=== PATIENT | male | born 1945 | race Caucasian/White ===

== ENCOUNTER 2016-12-12 19:35 | Inpatient (IN) | payer MEDICARE, OTHER ==
[2016-12-12 19:37] VITALS: BP 152/79; PULSE 87; RESP 16; TEMP 98; O2SAT 100
--- NOTE | 2016-12-12 22:01 | PD ---
HPI Chief Complaint: GI Complaint Time Seen by Provider: 21:50 Travel History International Travel<30 days: No Contact w/Intl Traveler<30days: No Traveled to known affect area: No History of Present Illness HPI The patient is a 71 year old male who presents to the [facility] emergency department with a history of nausea and vomiting that began on Monday of last week. He reports that the last time he moved his bowels was on Monday, with onset of the vomiting. He reports that on he went to [facility] emergency department and had laboratory studies done and a chest x-ray done. The patient reports he received 2 bags of normal saline IV fluids and Zofran as well as Phenergan for nausea control and then discharged home on Zofran. He continues to have nausea and vomiting in spite of using the Zofran. He reports that over the last 24 hours she's had at least 20 episodes of vomiting. He reports that the emesis consists of bile. 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 He reports that he has had a colonoscopy done since then in August 2016 that was reportedly unremarkable. On review of systems, the patient denies any fevers, cough, congestion, neck pain, chest pain , abdominal pain, urinary symptoms, or neurologic symptoms. The patient incidentally also reports that over the last 5 weeks he has had 3 episodes of dyspnea with exertion associated with dizziness and lightheaded sensation. The patient reports that he has intermittently also had increased sensations of indigestion, heartburn. [facility], [facility] Past Medical History Narrative Medical The patient's past medical history is significant for tumor and bleed in stomach dx approximately 12 years ago, last upper and lower endoscopy 08/2016, hypertension, hyperlipidemia, history of prior PA, history of right coronary artery stent placement, diabetes mellitus. PMD: in [place]. Past Surgical History Narrative Surgical The patient's past surgical history is significant for a cholecystectomy, benign tumor resection from his stomach, cardiac catheterization with stent placement. Social History Alcohol Use: No Tobacco Use: No Substance Use: No Allergies-Medications (Allergen,Severity, Reaction): Coded Allergies: No Known Allergies (Unverified , 12/12/16) Review of Systems Except as stated in HPI: all other systems reviewed are Neg General / Constitutional: No: Fever Eyes: No: Visual changes HENT: Positive: Lightheadedness, No: Headaches Cardiovascular: Positive: Dyspnea on exertion, No: Chest Pain or Discomfort Respiratory: No: Shortness of Breath Gastrointestinal: Positive: Nausea, Vomiting, Diarrhea, Changes in Bowel Habits , Indigestion, No: Abdominal Pain, Hematemesis, Hematochezia, Loss of Appetite Genitourinary: No: Dysuria Musculoskeletal: No: Pain Skin: No Rash Neurologic: No: Weakness Psychiatric: No: Depression Endocrine: No: Polydipsia Hematologic/Lymphatic: No: Easy Bruising Physical Exam Narrative General: The patient is a well-developed well-nourished male in no acute distress. Head and Neck exam: Head is normocephalic atraumatic. Eyes: EOMI, pupils are equal round and reactive to light. Nose: Midline septum with pink mucous membranes Mouth: Dentition unremarkable. Moist mucus membranes. Posterior oropharynx is not erythematous. No tonsillar hypertrophy. Uvula midline. Airway patent. Neck: No palpable lymphadenopathy. No nuchal rigidity. No thyromegaly. Cardiovascular: Regular rate and rhythm without murmurs, gallops, or rubs. Lungs: Clear to auscultation bilaterally. No wheezes, rhonchi, or rales. Abdomen: Soft, without tenderness to palpation in all 4 quadrants of the abdomen. No guarding, rebound, or rigidity. No tenderness on palpation of McBurney's point. Negative Mason's sign. Normal bowel sounds are audible. Extremities: No clubbing, cyanosis, or edema. 2+ pulses in all 4 extremities. No calf tenderness on palpation. Back: No costovertebral angle tenderness to palpation. Neurologic Exam: Grossly nonfocal. Skin Exam: No rash noted. Intact skin that is warm and dry. Data Data Last Documented VS Vital Signs Date Time Temp Pulse Resp B/P Pulse Ox O2 Delivery O2 Flow Rate FiO2 12/12/16 22:40 99 12/12/16 19:37 98.0 87 16 152/79 Room Air Orders Electrocardiogram (12/12/16 21:53) Complete Blood Count With Diff (12/12/16 21:53) Comprehensive Metabolic Panel (12/12/16 21:53) Troponin I (12/12/16 21:53) Prothrombin Time / Inr (Pt) (12/12/16 21:53) Act Partial Throm Time (Ptt) (12/12/16 21:53) Lipase (12/12/16 21:53) Urinalysis - C+S If Indicated (12/12/16 21:53) Magnesium (Mg) (12/12/16 21:53) Chest, Single Ap (12/12/16 21:53) Iv Access Insert/Monitor (12/12/16 21:53) Ecg Monitoring (12/12/16 21:53) Oximetry (12/12/16 21:53) Sodium Chlorid 0.9% 500 Ml Inj (Ns 500 M (12/12/16 22:15) Ondansetron Inj (Zofran Inj) (12/12/16 22:15) Ct Abd/Pel W Iv Contrast(Rout) (12/12/16 22:13) Pantoprazole Inj (Protonix Inj) (12/12/16 22:30) Iohexol 350 Inj (Omnipaque 350 Inj) (12/12/16 23:40) Place In Observation (12/13/16 ) Vital Signs (Adult) Q4H (12/13/16 00:10) Activity Oob With Assistance (12/13/16 00:10) Certified Nurses' Aide / Telemetry .CONTINUOUS (12/13/16 00:10) Diet Npo (12/13/16 Breakfast) Sodium Chlor 0.9% 1000 Ml Inj (Ns 1000 M (12/13/16 00:10) Admit Order (Ed Use Only) (12/13/16 00:11) Sodium Chloride 0.9% Flush (Ns Flush) (12/13/16 00:15) Sodium Chloride 0.9% Flush (Ns Flush) (12/13/16 09:00) Ondansetron Inj (Zofran Inj) (12/13/16 00:15) Basic Metabolic Panel (Bmp) (12/14/16 06:00) Complete Blood Count With Diff (12/14/16 06:00) Naloxone Inj (Narcan Inj) (12/13/16 00:15) Docusate Sodium-Senna (Dorota-Colace) (12/13/16 09:00) Magnesium Hydroxide Liq (Milk Of Magnesi (12/13/16 00:15) Sennosides (Senokot) (12/13/16 00:15) Bisacodyl Supp (Dulcolax Supp) (12/13/16 00:15) Lactulose Liq (Lactulose Liq) (12/13/16 00:15) Pantoprazole (Protonix) (12/13/16 09:00) Potassium Chlor 20 Meq Premix (Kcl 20 Me (12/13/16 00:15) Labs Laboratory Tests Test 12/12/16 12/12/16 22:00 22:10 White Blood Count 10.7 TH/MM3 Red Blood Count 5.86 MIL/MM3 Hemoglobin 16.2 GM/DL Hematocrit 47.7 % Mean Corpuscular Volume 81.4 FL Mean Corpuscular Hemoglobin 27.6 PG Mean Corpuscular Hemoglobin 33.9 % Concent Red Cell Distribution Width 14.4 % Platelet Count 233 TH/MM3 Mean Platelet Volume 8.3 FL Neutrophils (%) (Auto) 70.0 % Lymphocytes (%) (Auto) 20.2 % Monocytes (%) (Auto) 8.6 % Eosinophils (%) (Auto) 0.6 % Basophils (%) (Auto) 0.6 % Neutrophils # (Auto) 7.5 TH/MM3 Lymphocytes # (Auto) 2.1 TH/MM3 Monocytes # (Auto) 0.9 TH/MM3 Eosinophils # (Auto) 0.1 TH/MM3 Basophils # (Auto) 0.1 TH/MM3 CBC Comment DIFF FINAL Differential Comment Prothrombin Time 12.2 SEC Prothromb Time International 1.1 RATIO Ratio Activated Partial 26.1 SEC Thromboplast Time Sodium Level 138 MEQ/L Potassium Level 3.3 MEQ/L Chloride Level 104 MEQ/L Carbon Dioxide Level 19.5 MEQ/L Anion Gap 15 MEQ/L Blood Urea Nitrogen 17 MG/DL Creatinine 0.97 MG/DL Estimat Glomerular Filtration 76 ML/MIN Rate Random Glucose 131 MG/DL Calcium Level 9.8 MG/DL Magnesium Level 2.1 MG/DL Total Bilirubin 1.1 MG/DL Aspartate Amino Transf 35 U/L (AST/SGOT) Alanine Aminotransferase 43 U/L (ALT/SGPT) Alkaline Phosphatase 83 U/L Troponin I LESS THAN 0.02 NG/ML Total Protein 7.5 GM/DL Albumin 3.7 GM/DL Lipase 152 U/L Urine Color YELLOW Urine Turbidity HAZY Urine pH 5.5 Urine Specific [place] 1.035 Urine Protein 30 mg/dL Urine Glucose (UA) NEG mg/dL Urine Ketones 40 mg/dL Urine Occult Blood NEG Urine Nitrite NEG Urine Bilirubin NEG Urine Urobilinogen 4.0 MG/DL Urine Leukocyte Esterase NEG Urine RBC 1 /hpf Urine WBC 2 /hpf Urine Squamous Epithelial 1 /hpf Cells Urine Mucus MANY /lpf Microscopic Urinalysis Comment CULT NOT INDICATED MDM Medical Decision Making Medical Screen Exam Complete: Yes Emergency Medical Condition: Yes Medical Record Reviewed: Yes Interpretation(s) Last Impressions Abdomen/Pelvis CT 12/12/162212 Signed Impressions: Service Date/Time: Monday, December 12, 2016 23:36 - CONCLUSION: 1. Nonspecific bowel gas pattern which may represent an ileus or gastroenteritis. Early obstruction is felt to be less likely. 2. Moderate hepatic steatosis. 3. Status post cholecystectomy. 4. Small low-attenuation lesion in the spleen which is nonspecific but appears benign. 5. Several small sclerotic foci which are nonspecific but likely represent small bone islands. Johann Bennett MD Chest X-Ray 12/12/162152 Signed Impressions: Service Date/Time: Monday, December 12, 2016 21:49 - CONCLUSION: The lungs are clear. Jamaal Rodriguez MD Differential Diagnosis Gastroenteritis, versus gastroparesis, versus bowel obstruction, versus ileus Narrative Course During the course of the patients emergency department visit, the patients history, examination, and differential diagnosis were reviewed with the patient. The patient had IV access obtained and blood work sent for analysis. The patient was placed on a monitor worker with oximetry and blood pressure monitoring. An ECG was done on arrival. The patient's ECG reveals a sinus rhythm with occasional supraventricular premature complexes, nonspecific ST segment T-wave abnormalities are noted, the patient is noted to have downsloping ST segments in leads V1, V2, V3, V4, V5, and V6. No acute ST segment elevation. The patient denies having any chest pain. The patient was initially provided normal saline a 500 mL bolus 1. The patient was given Zofran 4 mg IV for nausea. The patient was given Protonix 40 mg IV for heartburn. The patients laboratory studies were reviewed and remarkable for a white count of 10.7, hemoglobin 16.2, platelets 233 with 8.6 monocytes. CMP is remarkable for a potassium of 3.3, CO2 19.5, glucose 131, total bilirubin 1.1, troponin less than 0.02, lipase 152, PT 12.2, PTT 26.1, urinalysis shows 40 ketones otherwise unremarkable. Radiology studies were reviewed and remarkable for a chest x-ray that shows no acute cardiopulmonary disease. CT scan of the abdomen and pelvis shows a nonspecific bowel gas pattern which may represent an ileus or gastroenteritis, early obstruction is felt to be less likely, moderate hepatic steatosis, status post cholecystectomy, small low attenuation lesion in the spleen which is nonspecific but appears benign, several small sclerotic foci which are nonspecific but likely represents small bone islands The patients results were discussed with the patient, including the plan of care. I explained that further testing and/ or monitoring is indicated based on the patients history, examination, and/ or laboratory findings. Therefore, I recommended admission for additional evaluation. The patient expressed understanding and was agreeable with this plan. The patient was admitted to the hospital in stable condition and [facility] Physician Communication Physician Communication The patient's case was discussed with Dr. Puga who did agree to admit the patient for further evaluation and treatment at this time. Diagnosis Primary Impression: Intractable vomiting with nausea Qualified Code: R11.2 - Intractable vomiting with nausea, unspecified vomiting type Admitting Information Admitting Physician Requests: Cheri Watson MD Dec 12, 2016 22:01
[2016-12-12] MEDS ORDERED: SODIUM CHLORID 0.9% 500 ML INJ 500 ML IV ONE (22:15)
[2016-12-12] MEDS ORDERED: ONDANSETRON HCL 4 MG/2 ML VIAL IV PUSH ONE (22:15)
[2016-12-12 22:16] LABS: AUTOMATED NEUTROPHIL # 7.5 TH/MM3 (1.8-7.7); BASOPHIL # 0.1 TH/MM3 (0-0.2); BASOPHIL % 0.6 % (0.0-2.0); EOSINOPHIL # 0.1 TH/MM3 (0-0.4); EOSINOPHIL % 0.6 % (0.0-4.0); HEMATOCRIT 47.7 % (39.0-51.0); HEMO FLAGS DIFF FINAL; LYMPH % 20.2 % (9.0-44.0); LYMPHOCYTE # 2.1 TH/MM3 (1.0-4.8); MEAN CELL VOLUME 81.4 FL (80.0-100.0); MEAN CORPUSCULAR HEMOGLOBIN 27.6 PG (27.0-34.0); MEAN CORPUSCULAR HGB CONC 33.9 % (32.0-36.0); MONO % 8.6 % (0.0-8.0); PLATELET COUNT 233 TH/MM3 (150-450); RED BLOOD COUNT 5.86 MIL/MM3 (4.50-5.90); RED CELL DISTRIBUTION WIDTH 14.4 % (11.6-17.2); WHITE BLOOD COUNT 10.7 TH/MM3 (4.0-11.0)
[2016-12-12 22:28] LABS: APTT (PATIENT) 26.1 SEC (24.3-30.1); INTERNATIONAL NORMALIZED RATIO 1.1 RATIO; PROTHROMBIN TIME - PATIENT 12.2 SEC (9.8-11.6)
[2016-12-12] MEDS ORDERED: PANTOPRAZOLE SODIUM 40 MG VIAL IV PUSH ONE (22:30)
[2016-12-12 22:33] LABS: ALT (GPT) 43 U/L (12-78)
[2016-12-12 22:36] LABS: ALKALINE PHOSPHATASE 83 U/L (45-117); TOTAL BILIRUBIN ADULT 1.1 MG/DL (0.2-1.0)
[2016-12-12 22:37] LABS: ANION GAP 15 MEQ/L (5-15); AST (GOT) 35 U/L (15-37); BICARBONATE 19.5 MEQ/L (21.0-32.0); BLOOD UREA NITROGEN 17 MG/DL (7-18); CHLORIDE 104 MEQ/L (98-107); GLOMERULAR FILTRATION RATE 76 ML/MIN (>89); MAGNESIUM 2.1 MG/DL (1.5-2.5); POTASSIUM 3.3 MEQ/L (3.5-5.1); SODIUM (NA) 138 MEQ/L (136-145)
[2016-12-12 22:40] VITALS: O2SAT 99
[2016-12-12 22:43] LABS: BLOOD, URINE NEG (NEG); COMMENT (UR) CULT NOT INDICATED; CULTURE IF INDICATED CULT NOT INDICATED; GLUCOSE,URINE NEG (NEG); KETONE, URINE 40 mg/dL (NEG); MUCUS URINE MANY /lpf (OCC); NITRITE,URINE NEG (NEG); PH, URINE 5.5 (5.0-8.5); SQUAMOUS EPITHELIAL CELL URINE 1 /hpf (0-5); URINE COLOR YELLOW (YELLW/STRAW)
--- NOTE | 2016-12-12 22:55 | RADRPT ---
EXAM DATE/TIME: 12/12/2016 21:49 [facility] COMPARISON: No previous studies available for comparison. INDICATIONS : Vomiting MEDICAL HISTORY : Hypertension. Diabetes mellitus type II. Cardiovascular disease. SURGICAL HISTORY : Cardic stent, pain stimulator ENCOUNTER: Initial ACUITY: 3 days PAIN SCORE: 0/10 LOCATION: chest FINDINGS: A single view of the chest demonstrates the lungs to be symmetrically aerated without evidence of mas s, infiltrate or effusion. The cardiomediastinal contours are unremarkable. Osseous structures are intact. Spinal stimulation electrodes in the midthoracic region. CONCLUSION: The lungs are clear. Jamaal Rodriguez MD on December 12, 2016 at 22:53 Board Certified Radiologist. This report was verified electronically.
[2016-12-12] MEDS ORDERED: IOHEXOL 350 MG/ML 10 ML VIAL (for RAD DIAG) IV ONE (23:40)
[2016-12-13] VITALS (11 sets, daily range): BP systolic 108–138; BP diastolic 65–76; PULSE 51–93; RESP 17–20; TEMP 96.9–98.7; O2SAT 94–99
--- NOTE | 2016-12-13 00:07 | RADRPT ---
EXAM DATE/TIME: 12/12/2016 23:36 [facility] COMPARISON: No previous studies available for comparison. INDICATIONS : Abdominal pain and vomiting x 5 days. Evaluate for obstruction. IV CONTRAST: 95 cc Omnipaque 350 (iohexol) IV ORAL CONTRAST: Partial prescribed oral contrast ingested. RADIATION DOSE: 11.41 CTDIvol (mGy) MEDICAL HISTORY : Hypertension. Diabetes mellitus type 2. Cardiovascular disease SURGICAL HISTORY : Pain stimulator. ENCOUNTER: Initial ACUITY: 4 - 6 days PAIN SCALE: 2/10 LOCATION: Bilateral upper quadrant TECHNIQUE: Volumetric scanning of the abdomen and pelvis was performed. Using automated exposure control and ad justment of the mA and/or kV according to patient size, radiation dose was kept as low as reasonably achievable to obtain optimal diagnostic quality images. DICOM format image data is available electro nically for review and comparison. FINDINGS: LOWER LUNGS: The visualized lower lungs are clear. LIVER: Homogeneous density without lesion. There is no dilation of the biliary tree. The patient is status post cholecystectomy. There is moderate hepatic steatosis. SPLEEN: Normal in size and shape. There is a small 9 mm round low-attenuation lesion in the anterior spleen. PANCREAS: Within normal limits. KIDNEYS: Normal in size and shape. There is no solid mass, stone or hydronephrosis. There is a simple cyst in the upper pole of the right kidney. ADRENAL GLANDS: Within normal limits. VASCULAR: There is no aortic aneurysm. BOWEL/MESENTERY: There are multiple loops of nondilated air-containing small bowel in the anterior abdomen with multip le air-fluid levels. Gas and stool is noted segmentally in the colon. There is a normal appendix. The re is no free air or fluid. ABDOMINAL WALL: Within normal limits. RETROPERITONEUM: There is no lymphadenopathy. BLADDER: No wall thickening or mass. REPRODUCTIVE: Within normal limits. INGUINAL: There is no lymphadenopathy or hernia. MUSCULOSKELETAL: There is mild osteopenia and degenerative change. There is a small sclerotic foci in the left ilium m easuring 5-6 mm. There is a slightly larger sclerotic foci in the left anterior pubic rami. CONCLUSION: 1. Nonspecific bowel gas pattern which may represent an ileus or gastroenteritis. Early obstruction i s felt to be less likely. 2. Moderate hepatic steatosis. 3. Status post cholecystectomy. 4. Small low-attenuation lesion in the spleen which is nonspecific but appears benign. 5. Several small sclerotic foci which are nonspecific but likely represent small bone islands. Johann Bennett MD on December 13, 2016 at 0:01 Board Certified Radiologist. This report was verified electronically.
[2016-12-13] MEDS ORDERED: SODIUM CHLORIDE 0.9% FLUSH 10 ML FLUSH IV FLUSH PRN (00:15)
[2016-12-13] MEDS ORDERED: ONDANSETRON HCL 4 MG/2 ML VIAL IVP PRN (00:15)
[2016-12-13] MEDS ORDERED: POTASSIUM CHLOR 20 MEQ PREMIX 100 ML IV SCH (00:15)
[2016-12-13] MEDS ORDERED: NALOXONE HCL 0.4 MG/ML AMP IV PRN (00:15)
[2016-12-13] MEDS ORDERED: BISACODYL 10 MG SUPP RECTAL PRN (00:15)
[2016-12-13] MEDS ORDERED: SENNOSIDES 8.6 MG TAB PO PRN (00:15)
[2016-12-13] MEDS ORDERED: LACTULOSE SYRUP 20 GM/30 ML CUP PO PRN (00:15)
[2016-12-13] MEDS ORDERED: MAGNESIUM HYDROXIDE SUSP 30 ML CUP PO PRN (00:15)
--- NOTE | 2016-12-13 01:23 | HHI.HP ---
HPI Service [facility] Non-Staff Admission Diagnosis Intractable vomiting Diagnoses: Chief Complaint: nausea, vomiting, constipation Travel History International Travel<30 Days: No Contact w/Intl Traveler <30 Da: No Traveled to Known Affected Are: No History of Present Illness Written by APURVA Newberry acting as scribe for [Vivien] on 12/13/16 at 01: 11. 71 y/o male with a history of HTN, DM, dyslipidemia, chronic pain on narcotics presented to the ED with complaints of nausea, vomiting and constipation. Patient states Monday night he began to have nausea, vomiting, abdominal pain , and constipation. He was seen at [facility], and was discharged with Zofran. He states at home he had a fever, t max 101 by an ear thermometer. H has been unable to keep any liquids or food down since Monday. Denies cough, diarrhea , or dysuria. He states he has been experiencing dizziness, chest pain, sob and sweating episodes x 3 while doing yard work for the past 5 weeks. He has not gone to see PCP, he has just moved from [place] and has not gotten established. Review of Systems Except as stated in HPI: all other systems reviewed are Neg Past Family Social History Past Medical History HTN DM HLD Chronic pain Past Surgical History Left carotid stent Right knee scope Cholecystectomy Benign stomach tumor removed Spinal cord stimulator Allergies: Coded Allergies: No Known Allergies (Unverified , 12/12/16) Active Ordered Medications Current Medications Medications (Trade) Dose Ordered Sig/Madonna Route Start Time Stop Time Status Last Admin (NS 1000 ml Inj) 1,000 ml @ 70 mls/hr [id number] IV 12/13/16 00:10 (NS Flush) 2 ml UNSCH PRN IV FLUSH 12/13/16 00:15 (NS Flush) 2 ml BID IV FLUSH 12/13/16 09:00 (Zofran Inj) 4 mg Q6H PRN IVP 12/13/16 00:15 (Narcan Inj) 0.4 mg UNSCH PRN IV 12/13/16 00:15 (Dorota-Colace) 1 tab BID PO 12/13/16 09:00 (Milk Of Magnesia Liq) 30 ml Q12H PRN PO 12/13/16 00:15 (Senokot) 17.2 mg Q12H PRN PO 12/13/16 00:15 (Dulcolax Supp) 10 mg DAILY PRN RECTAL 12/13/16 00:15 (Lactulose Liq) 30 ml DAILY PRN PO 12/13/16 00:15 Pantoprazole Sodium 40 mg 40 mg DAILY PO 12/13/16 09:00 (KCl 20 Meq Premix Inj) 100 ml @ 50 mls/hr Q2H IV 12/13/16 00:15 12/13/16 04:14 Family History Mom and Dad: Heart disease, after CABG Social History Tobacco use: Quit 50 years ago Alcohol use: rarely Illicit drug use: Denies Physical Exam Vital Signs Vital Signs Date Time Temp Pulse Resp B/P Pulse Ox O2 Delivery O2 Flow Rate FiO2 12/12/16 22:40 99 12/12/16 19:37 98.0 87 16 152/79 100 Room Air Physical Exam GENERAL: This is a well-nourished, well-developed patient, in no apparent distress. SKIN: No rashes, ecchymoses or lesions. Cool and dry. HEAD: Atraumatic. Normocephalic. EYES: Pupils equal round and reactive. Extraocular motions intact. ENT: Nose without bleeding, purulent drainage or septal hematoma. Airway patent. NECK: Trachea midline. No JVD or lymphadenopathy. CARDIOVASCULAR: Regular rate and rhythm without murmurs, gallops, or rubs. RESPIRATORY: Clear to auscultation. Breath sounds equal bilaterally. No wheezes , rales, or rhonchi. GASTROINTESTINAL: Abdomen soft, defuse tenderness, nondistended. MUSCULOSKELETAL: Extremities without clubbing, cyanosis, or edema. No joint tenderness, effusion, or edema noted. No calf tenderness. Negative Homans sign bilaterally. NEUROLOGICAL: Awake and alert. Motor and sensory grossly within normal limits. Normal speech. Laboratory Laboratory Tests Test 12/12/16 12/12/16 22:00 22:10 White Blood Count 10.7 Red Blood Count 5.86 Hemoglobin 16.2 Hematocrit 47.7 Mean Corpuscular Volume 81.4 Mean Corpuscular Hemoglobin 27.6 Mean Corpuscular Hemoglobin 33.9 Concent Red Cell Distribution Width 14.4 Platelet Count 233 Mean Platelet Volume 8.3 Neutrophils (%) (Auto) 70.0 Lymphocytes (%) (Auto) 20.2 Monocytes (%) (Auto) 8.6 Eosinophils (%) (Auto) 0.6 Basophils (%) (Auto) 0.6 Neutrophils # (Auto) 7.5 Lymphocytes # (Auto) 2.1 Monocytes # (Auto) 0.9 Eosinophils # (Auto) 0.1 Basophils # (Auto) 0.1 CBC Comment DIFF FINAL Differential Comment Prothrombin Time 12.2 Prothromb Time International 1.1 Ratio Activated Partial 26.1 Thromboplast Time Sodium Level 138 Potassium Level 3.3 Chloride Level 104 Carbon Dioxide Level 19.5 Anion Gap 15 Blood Urea Nitrogen 17 Creatinine 0.97 Estimat Glomerular Filtration 76 Rate Random Glucose 131 Calcium Level 9.8 Magnesium Level 2.1 Total Bilirubin 1.1 Aspartate Amino Transf 35 (AST/SGOT) Alanine Aminotransferase 43 (ALT/SGPT) Alkaline Phosphatase 83 Troponin I LESS THAN 0.02 Total Protein 7.5 Albumin 3.7 Lipase 152 Urine Color YELLOW Urine Turbidity HAZY Urine pH 5.5 Urine Specific [place] 1.035 Urine Protein 30 Urine Glucose (UA) NEG Urine Ketones 40 Urine Occult Blood NEG Urine Nitrite NEG Urine Bilirubin NEG Urine Urobilinogen 4.0 Urine Leukocyte Esterase NEG Urine RBC 1 Urine WBC 2 Urine Squamous Epithelial 1 Cells Urine Mucus MANY Microscopic Urinalysis Comment CULT NOT INDICATED Result Diagram: 12/12/16219912/12/162199 Imaging Last Impressions Abdomen/Pelvis CT 12/12/162212 Signed Impressions: Service Date/Time: Monday, December 12, 2016 23:36 - CONCLUSION: 1. Nonspecific bowel gas pattern which may represent an ileus or gastroenteritis. Early obstruction is felt to be less likely. 2. Moderate hepatic steatosis. 3. Status post cholecystectomy. 4. Small low-attenuation lesion in the spleen which is nonspecific but appears benign. 5. Several small sclerotic foci which are nonspecific but likely represent small bone islands. Johann Bennett MD Chest X-Ray 12/12/162152 Signed Impressions: Service Date/Time: Monday, December 12, 2016 21:49 - CONCLUSION: The lungs are clear. Jamaal Rodriguez MD Assessment and Plan Problem List: (1) Ileus ICD Code: K56.7 Status: Acute (2) Hypokalemia ICD Code: E87.6 Status: Acute (3) HTN (hypertension) ICD Code: I10 Status: Acute (4) Chronic pain ICD Code: G89.29 Status: Acute Assessment and Plan 71 y/o male with a history of HTN, DM, dyslipidemia, chronic pain on narcotics presented to the ED with complaints of nausea, vomiting and constipation. Ileus, patient with chronic narcotic use at home, no BM for [address] reviewed and shows Nonspecific bowel gas pattern which may represent an ileus or gastroenteritis. Early obstruction is felt to be less likely. Moderate hepatic steatosis. Small low-attenuation lesion in the spleen which is nonspecific but appears benign. Several small sclerotic foci which are nonspecific but likely represent small bone islands. -Anti emetics as needed -IVF for hydration -NPO for now Chest pain, and dizziness for the past 5 months r/o ACS Troponin .02 -Trend troponin -Serial EKGs -Carotid US ordered -Monitor Tele -May need lexiscan in future Hypokalemia, potassium 3.3 -Replacement ordered -BMP in AM, trend and replace as needed Chronic pain, patient with spinal cord stimulator -Cont home medications when vomiting has subsided HTN, chronic -Cont home medications when vomiting has subsided -Will order PRNs if needed DVT prophylaxis: Lovenox GI prophylaxis: Protonix This note was transcribed by scribe [Mague Umana]. I, Dr. Yan Puga personally performed the history, physical exam, and medical decision making; and confirmed the accuracy of the information in the transcribed note. Authenticated by Dr. Yan Puga on 12/13/16 at 01:11. Discussed Condition With Patient, RN and ED physician Problem Qualifiers (1) Chronic pain: Qualified Code: G89.4 - Chronic pain syndrome Mague Umana Dec 13, 2016 01:23 Yan Puga MD Dec 13, 2016 07:36
[2016-12-13] MEDS: SODIUM CHLOR 0.9% 1000 ML INJ 1,000 ML IV SCH ×2 (02:01→15:02)
[2016-12-13] MEDS ORDERED: OXYC-395 PO (03:43)
[2016-12-13] MEDS ORDERED: NEUR100C PO (03:43)
[2016-12-13] MEDS ORDERED: LISI40TA PO (03:43)
[2016-12-13] MEDS ORDERED: OMEP20TA PO (03:43)
[2016-12-13] MEDS ORDERED: METH10TA PO (03:43)
[2016-12-13] MEDS ORDERED: METO25TA3 PO (03:43)
[2016-12-13] MEDS ORDERED: METF1000 PO (03:43)
[2016-12-13] MEDS ORDERED: ASPI81CH CHEW (03:43)
[2016-12-13] MEDS ORDERED: POTASSIUM CHLORIDE 20 MEQ CONTROLLED RELEASE TAB PO ONE (03:45)
[2016-12-13] MEDS ORDERED: NUED20CA PO (03:53)
[2016-12-13] MEDS ORDERED: SITA1TAB2 PO (03:53)
[2016-12-13] MEDS: PANTOPRAZOLE SOD 40 MG DELAYED RELEASE TAB PO SCH (07:46)
[2016-12-13] MEDS: ENOXAPARIN SODIUM 30 MG/0.3 ML SYRINGE SQ SCH (07:47)
[2016-12-13] MEDS: DOCUSATE SODIUM 50 MG/SENNA 8.6 MG TAB PO SCH ×2 (07:47→20:28)
[2016-12-13] MEDS: SODIUM CHLORIDE 0.9% FLUSH 10 ML FLUSH IV FLUSH SCH ×2 (07:47→20:49)
--- NOTE | 2016-12-13 09:30 | RADRPT ---
EXAM DATE/TIME: 12/13/2016 08:13 [place] COMPARISON: No previous studies available for comparison. INDICATIONS : Occlusion. MEDICAL HISTORY : Hypertension. Diabetes. GI bleed. SURGICAL HISTORY : Gastric tumor removal. Endoscopy. Coronary stent. ENCOUNTER: Initial ACUITY: 1 week PAIN SCORE: 0/10 LOCATION: Bilateral neck PEAK SYSTOLIC VELOCITIES (cm/sec): ICA/CCA RATIO: Right: 1.0 Left: 0.6 ICA: Right: 71 Left: 67 CCA: Right: 68 Left: 109 ECA: Right: 95 Left: 46 VERTEBRAL: Right: 59 antegrade Left: 35 antegrade Elevated flow velocities and ICA/CCA ratios have been found to correlate with increased degrees of vessel stenosis, calculated as percentage of diameter relative to a normal segment of distal ICA/CCA FINDINGS: RIGHT CAROTID: Calcified plaque in the carotid bulb. No significant stenosis is visualized. The waveforms are withi n normal limits. LEFT CAROTID: Increased velocities in the left proximal common carotid artery without significant associated plaque noted on grayscale imaging. This may reflect mild to moderate stenosis near the origin. Calcified pl aque at the carotid pole. No significant stenosis in the internal carotid artery. Waveforms are withi n normal limits. VERTEBRAL ARTERIES: Antegrade flow is seen in both vertebral arteries. MISCELLANEOUS: None. CONCLUSION: 1. Suspect mild to moderate stenosis of the left common carotid artery near the origin. 2. No hemodynamically significant internal carotid artery stenosis. 3. Antegrade vertebral artery flow bilaterally. Jose Alberto Hay MD on December 13, 2016 at 9:25 Board Certified Radiologist. This report was verified electronically.
[2016-12-13] MEDS ORDERED: MAGNESIUM HYDROXIDE SUSP 30 ML CUP PO ONE (09:45)
--- NOTE | 2016-12-13 09:52 | HHI.PR ---
Subjective Remarks Follow up for ileus/gastroenteritis. The patient reports no further vomiting since last night. He states his nausea was significantly relieved by the IV Zofran. Denies any abdominal pain. He would like to try to eat. He has not had a BM in almost 1 week but states he hasn't hardly been eating anything. He is passing flatus. Denies fevers/chills. He has no other medical complaints at this time. Objective Vitals Vital Signs Date Time Temp Pulse Resp B/P Pulse Ox O2 Delivery O2 Flow Rate FiO2 12/13/16 07:56 98.0 65 18 138/68 98 12/13/16 04:26 96.9 81 20 137/70 94 12/13/16 04:13 93 12/13/16 02:12 86 12/13/16 01:50 98.1 84 18 136/76 99 12/12/16 22:40 99 12/12/16 19:37 98.0 87 16 152/79 100 Room Air Result Diagram: 12/12/16219912/12/162199 Imaging Last Impressions Carotid Artery Ultrasound 12/13/16 0000 Signed Impressions: Service Date/Time: Tuesday, December 13, 2016 08:13 - CONCLUSION: 1. Suspect mild to moderate stenosis of the left common carotid artery near the origin. 2. No hemodynamically significant internal carotid artery stenosis. 3. Antegrade vertebral artery flow bilaterally. Jose Alberto Hay MD Abdomen/Pelvis CT 12/12/162212 Signed Impressions: Service Date/Time: Monday, December 12, 2016 23:36 - CONCLUSION: 1. Nonspecific bowel gas pattern which may represent an ileus or gastroenteritis. Early obstruction is felt to be less likely. 2. Moderate hepatic steatosis. 3. Status post cholecystectomy. 4. Small low-attenuation lesion in the spleen which is nonspecific but appears benign. 5. Several small sclerotic foci which are nonspecific but likely represent small bone islands. Johann Bennett MD Chest X-Ray 12/12/162152 Signed Impressions: Service Date/Time: Monday, December 12, 2016 21:49 - CONCLUSION: The lungs are clear. Jamaal Rodriguez MD Objective Remarks GENERAL: Well-nourished, well-developed elderly male patient in [facility]. SKIN: Warm and dry. No rash. HEENT: Normocephalic. Atraumatic.Pupils equal and round. Mucous membranes pink and moist. NECK: Supple. Trachea midline. CARDIOVASCULAR: Regular rate and rhythm. S1, S2 noted. No murmur appreciated. RESPIRATORY: No accessory muscle use. Clear to auscultation. Breath sounds equal bilaterally. GASTROINTESTINAL: Abdomen soft, non-tender, nondistended. Normoactive bowel sounds x4. MUSCULOSKELETAL: No obvious deformities. Extremities without clubbing, cyanosis , or edema. NEUROLOGICAL: Awake and alert. No obvious cranial nerve deficits. Motor grossly within normal limits. Normal speech. PSYCHIATRIC: Appropriate mood and affect; insight and judgment normal. Medications and IVs Current Medications Medications (Trade) Dose Ordered Sig/Madonna Route Start Time Stop Time Status Last Admin (NS 1000 ml Inj) 1,000 ml @ 70 mls/hr [id number] IV 12/13/16 00:10 12/13/16 02:01 (NS Flush) 2 ml UNSCH PRN IV FLUSH 12/13/16 00:15 (NS Flush) 2 ml BID IV FLUSH 12/13/16 09:00 (Zofran Inj) 4 mg Q6H PRN IVP 12/13/16 00:15 (Narcan Inj) 0.4 mg UNSCH PRN IV 12/13/16 00:15 (Dorota-Colace) 1 tab BID PO 12/13/16 09:00 12/13/16 07:47 (Milk Of Magnesia Liq) 30 ml Q12H PRN PO 12/13/16 00:15 (Senokot) 17.2 mg Q12H PRN PO 12/13/16 00:15 (Dulcolax Supp) 10 mg DAILY PRN RECTAL 12/13/16 00:15 (Lactulose Liq) 30 ml DAILY PRN PO 12/13/16 00:15 (Protonix) 40 mg DAILY PO 12/13/16 09:00 12/13/16 07:46 (Lovenox Inj) 30 mg Q24H SQ 12/13/16 09:00 12/13/16 07:47 (Morphine Inj) 2 mg Q3H PRN IV PUSH 12/13/16 03:45 (Milk Of Magnesia Liq) 30 ml ONCE ONCE PO 12/13/16 09:45 8/1/17 09:46 UNV A/P Problem List: (1) Ileus ICD Code: K56.7 Status: Acute (2) Hypokalemia ICD Code: E87.6 Status: Acute (3) HTN (hypertension) ICD Code: I10 Status: Acute (4) Chronic pain ICD Code: G89.29 Status: Acute Assessment and Plan 71 y/o male with a history of HTN, DM, dyslipidemia, chronic pain on narcotics presented to the ED with a 6day history of nausea, vomiting and constipation. Ileus: patient with chronic narcotic use at home, no BM x5 days. Possible component of gastroenteritis with intractable N/V. Abdominal CT images reviewed and shows nonspecific bowel gas pattern which may represent an ileus or gastroenteritis; Early obstruction is felt to be less likely. -Continue supportive treatment with IVF hydration, antiemetics prn -Initially kept NPO, advance to clear liquids today -Give MOM x1 and continue on Dorota-Colace bid -monitor for improvement Chest pain, and dizziness for the past 5 weeks: r/o ACS. Patient with hx of CAD s/p 1 stent placement 8-10years ago in [place]. No current chest pains. -Serial troponins negative x2, and EKG without acute ischemic changes -Carotid US with mild to moderate stenosis left common carotid; no hemodynamically significant stenosis of internal carotid arteries -Monitor on telemetry -Discussed with patient, he has appt with PCP in [place] this month, recommended he discuss with PCP for referral to cardiology for Nuclear Stress Test Hypokalemia, potassium 3.3 -Replacement ordered -Repeat BMP pending Chronic pain, patient with spinal cord stimulator -Cont home medications when ileus improves -verified dosing on E-Forcse: Methadone 10mg tab po q6h and oxycodone 10mg q8h HTN, chronic -Continue patient's metoprolol, hold lisinopril for now with well controlled BP and mild dehydration -Monitor BP, adjust antihypertensives as needed DVT prophylaxis: Lovenox GI prophylaxis: Protonix Discharge Planning 0945hrs: Possible discharge tomorrow if further clinical improvement. Problem Qualifiers (1) Chronic pain: Qualified Code: G89.4 - Chronic pain syndrome Fifi Tripathi PA-C Dec 13, 2016 9:52 am
[2016-12-13] MEDS: METOPROLOL TARTRATE 25 MG TAB PO SCH ×2 (10:26→20:28)
[2016-12-13] MEDS: GABAPENTIN 100 MG CAP PO SCH ×3 (12:39→20:28)
[2016-12-13] MEDS: MORPHINE SULFATE 4 MG/ML INJ IV PUSH PRN ×2 (12:49→22:40)
--- NOTE | 2016-12-13 15:09 | EKG ---
Date Performed: 12/12/2016 Time Performed: 22:14:19 PTAGE: 71 years EKG: Sinus rhythm WITH OCCASIONAL SUPRAVENTRICULAR PREMATURE COMPLEXES ST DEVIATION AND MODERATE T-WAVE ABNORMALITY, C ONSIDER ANTERIOR ISCHEMIA Clinical correlation is recommended ABNORMAL ECG NO PREVIOUS TRACING DOCTOR: Saul Chacko Interpretating Date/Time 12/13/2016 15:08:28
[2016-12-14] VITALS (11 sets, daily range): BP systolic 119–160; BP diastolic 55–76; PULSE 48–72; RESP 18; TEMP 97.5–98.6; O2SAT 92–99
[2016-12-14] MEDS: SODIUM CHLOR 0.9% 1000 ML INJ 1,000 ML IV SCH ×2 (05:30→18:11)
[2016-12-14 08:46] LABS: BICARBONATE 27.6 MEQ/L (21.0-32.0); POTASSIUM 3.8 MEQ/L (3.5-5.1)
[2016-12-14] MEDS: SODIUM CHLORIDE 0.9% FLUSH 10 ML FLUSH IV FLUSH SCH ×2 (08:54→20:16)
[2016-12-14] MEDS: DOCUSATE SODIUM 50 MG/SENNA 8.6 MG TAB PO SCH ×2 (08:55→20:15)
[2016-12-14] MEDS: ENOXAPARIN SODIUM 30 MG/0.3 ML SYRINGE SQ SCH (08:58)
[2016-12-14] MEDS: GABAPENTIN 100 MG CAP PO SCH ×4 (08:58→20:15)
[2016-12-14] MEDS: PANTOPRAZOLE SOD 40 MG DELAYED RELEASE TAB PO SCH (08:58)
[2016-12-14] MEDS: MORPHINE SULFATE 4 MG/ML INJ IV PUSH PRN ×3 (08:59→22:08)
[2016-12-14] MEDS: METOPROLOL TARTRATE 25 MG TAB PO SCH ×2 (09:05→20:15)
--- NOTE | 2016-12-14 09:12 | HHI.PR ---
Subjective Remarks Follow up for ileus/gastroenteritis. The patient reports feeling much better today. Denies any further nausea/vomiting. He's tolerating oral intake, wants more solid food. He had 2 bowel movements however described as black watery and tarry, no bright red blood. Denies any abdominal pain. He states he had routine EGD and colonoscopy in Jun or July 2016 in [place] that was reportedly unremarkable. The patient would like to go home today. Objective Vitals Vital Signs Date Time Temp Pulse Resp B/P Pulse Ox O2 Delivery O2 Flow Rate FiO2 12/14/16 07:22 97.9 50 18 131/59 99 12/14/16 04:00 48 12/14/16 03:30 97.7 56 18 119/55 97 12/14/16 00:00 50 12/13/16 23:09 98.2 56 18 108/65 96 12/13/16 20:00 78 12/13/16 18:58 97.9 81 17 115/74 98 12/13/16 15:36 98.5 61 18 129/65 98 12/13/16 11:53 98.7 51 18 132/68 98 I/O 12/13/16 12/13/16 12/13/16 12/14/16 12/14/16 12/14/16 07:00 15:00 23:00 07:00 15:00 23:00 Intake Total 560 ml Balance 560 ml Intake IV Total 560 ml Result Diagram: 12/12/16 2200 12/14/16 0705 Imaging Last Impressions Carotid Artery Ultrasound 12/13/16 0000 Signed Impressions: Service Date/Time: Tuesday, December 13, 2016 08:13 - CONCLUSION: 1. Suspect mild to moderate stenosis of the left common carotid artery near the origin. 2. No hemodynamically significant internal carotid artery stenosis. 3. Antegrade vertebral artery flow bilaterally. Jose Alberto Hay MD Abdomen/Pelvis CT 12/12/16 2213 Signed Impressions: Service Date/Time: Monday, December 12, 2016 23:36 - CONCLUSION: 1. Nonspecific bowel gas pattern which may represent an ileus or gastroenteritis. Early obstruction is felt to be less likely. 2. Moderate hepatic steatosis. 3. Status post cholecystectomy. 4. Small low-attenuation lesion in the spleen which is nonspecific but appears benign. 5. Several small sclerotic foci which are nonspecific but likely represent small bone islands. Johann Bennett MD Chest X-Ray 12/12/160 Signed Impressions: Service Date/Time: Monday, December 12, 2016 21:49 - CONCLUSION: The lungs are clear. Jamaal Rodriguez MD Objective Remarks GENERAL: Well-nourished, well-developed elderly male patient in [facility]. SKIN: Warm and dry. No rash. HEENT: Normocephalic. Atraumatic.Pupils equal and round. Mucous membranes pink and moist. NECK: Supple. Trachea midline. CARDIOVASCULAR: Regular rate and rhythm. S1, S2 noted. No murmur appreciated. RESPIRATORY: No accessory muscle use. Clear to auscultation. Breath sounds equal bilaterally. GASTROINTESTINAL: Abdomen soft, non-tender, nondistended. Normoactive bowel sounds x4. MUSCULOSKELETAL: No obvious deformities. Extremities without clubbing, cyanosis , or edema. NEUROLOGICAL: Awake and alert. No obvious cranial nerve deficits. Motor grossly within normal limits. Normal speech. PSYCHIATRIC: Appropriate mood and affect; insight and judgment normal. Medications and IVs Current Medications Medications (Trade) Dose Ordered Sig/Madonna Route Start Time Stop Time Status Last Admin (NS 1000 ml Inj) 1,000 ml @ 70 mls/hr [id number] IV 12/13/16 00:10 12/14/16 05:30 (NS Flush) 2 ml UNSCH PRN IV FLUSH 12/13/16 00:15 (NS Flush) 2 ml BID IV FLUSH 12/13/16 09:00 (Zofran Inj) 4 mg Q6H PRN IVP 12/13/16 00:15 (Narcan Inj) 0.4 mg UNSCH PRN IV 12/13/16 00:15 (Dorota-Colace) 1 tab BID PO 12/13/16 09:00 12/13/16 07:47 (Milk Of Magnesia Liq) 30 ml Q12H PRN PO 12/13/16 00:15 (Senokot) 17.2 mg Q12H PRN PO 12/13/16 00:15 (Dulcolax Supp) 10 mg DAILY PRN RECTAL 12/13/16 00:15 (Lactulose Liq) 30 ml DAILY PRN PO 12/13/16 00:15 (Protonix) 40 mg DAILY PO 12/13/16 09:00 12/14/16 08:58 (Lovenox Inj) 30 mg Q24H SQ 12/13/16 09:00 12/14/16 08:58 (Morphine Inj) 2 mg Q3H PRN IV PUSH 12/13/16 03:45 12/14/16 08:59 (Neurontin) 100 mg QID PO 12/13/16 13:00 12/14/16 08:58 (Lopressor) 25 mg BID PO 12/13/16 10:00 12/13/16 20:28 A/P Problem List: (1) Ileus ICD Code: K56.7 Status: Acute (2) Hypokalemia ICD Code: E87.6 Status: Acute (3) HTN (hypertension) ICD Code: I10 Status: Acute (4) Chronic pain ICD Code: G89.29 Status: Acute Assessment and Plan 71 y/o male with a history of HTN, DM, dyslipidemia, chronic pain on narcotics presented to the ED with a 6day history of nausea, vomiting and constipation. Ileus: patient with chronic narcotic use at home, no BM x5 days. Possible component of gastroenteritis with intractable N/V. Abdominal CT images reviewed and shows nonspecific bowel gas pattern which may represent an ileus or gastroenteritis; Early obstruction is felt to be less likely. -Continue supportive treatment with IVF hydration, antiemetics prn -Give MOM x1 and continued on Dorota-Colace bid -Initially kept NPO, advance to liquids 12/13, now advance to regular meals today -monitor for improvement, patient had 2 BMs however described as black, will check stool hemoccult Chest pain, and dizziness for the past 5 weeks: r/o ACS. Patient with hx of CAD s/p 1 stent placement 8-10years ago in [place]. No current chest pains. Suspect GI related as symptoms occurred mostly after nausea/vomiting. -Serial troponins negative x3, and EKG without acute ischemic changes -Carotid US with mild to moderate stenosis left common carotid; no hemodynamically significant stenosis of internal carotid arteries -Monitor on telemetry -Discussed with patient, he has appt with PCP in [place] this month, recommended he discuss with PCP for referral to cardiology for Nuclear Stress Test -no further chest pain, resolved Hypokalemia, potassium 3.3 -Replacement KCl given -Repeat BMP improved with K 3.8. Chronic pain, patient with spinal cord stimulator -Cont home medications when ileus improves -verified dosing on E-Forcse: Methadone 10mg tab po q6h and oxycodone 10mg q8h HTN, chronic -Continue patient's metoprolol, hold lisinopril for now with well controlled BP and mild dehydration -Monitor BP, adjust antihypertensives as needed DVT prophylaxis: Lovenox GI prophylaxis: Protonix Discharge Planning 0900hrs: Likely discharge today if hemoccult negative and patient tolerates oral intake. 1530hrs: Patient's stool is hemoccult positive. Will consult gastroenterology. So far, Hgb stable. Patient has had EGD/colonoscopy in Jun or July 2016 in [place], will try to obtain records. Hold off on discharge today. Monitor CBC. Problem Qualifiers (1) Chronic pain: Qualified Code: G89.4 - Chronic pain syndrome Fifi Tripathi PA-C Dec 14, 2016 09:12
[2016-12-14 11:21] LABS: AUTOMATED NEUTROPHIL # 2.3 TH/MM3 (1.8-7.7); BASOPHIL % 0.8 % (0.0-2.0); EOSINOPHIL # 0.1 TH/MM3 (0-0.4); EOSINOPHIL % 2.2 % (0.0-4.0); HEMATOCRIT 40.5 % (39.0-51.0); HEMO FLAGS DIFF FINAL; LYMPH % 33.2 % (9.0-44.0); LYMPHOCYTE # 1.3 TH/MM3 (1.0-4.8); MEAN CELL VOLUME 82.2 FL (80.0-100.0); MEAN CORPUSCULAR HEMOGLOBIN 27.8 PG (27.0-34.0); MEAN CORPUSCULAR HGB CONC 33.8 % (32.0-36.0); NEUT % 58.8 % (16.0-70.0); PLATELET COUNT 161 TH/MM3 (150-450); RED BLOOD COUNT 4.93 MIL/MM3 (4.50-5.90); RED CELL DISTRIBUTION WIDTH 14.4 % (11.6-17.2)
--- NOTE | 2016-12-14 16:52 | PD.CONS ---
HPI History of Present Illness This is a 71 year old male with hx UGIB, benign gastric mass, HTN, DM, chronic pain on narcotics, who presented with c/o n/v. He was found to have ileus, was kept NPO and given bowel regimen. He had his first solid meal today. He began having BM yesterday that was black tarry stool and some today as well, for which GI has been consulted. No abdominal pain, red blood in stool, coffee ground emesis, macie blood in emesis, unintentional weight loss. He has had "bleeders" in his stomach and was treated in ICU in 1999 for this, also claims, was also found to have benign mass. He had EGD and colonoscopy 5 months ago, findings were normal per pt. occasional NSAID use, none recently. No blood thinners. Occasional ETOH use. Denies liver problems. (Claribel Steiner) PFSH Past Medical History HTN DM HLD Chronic pain Past Surgical History Left carotid stent Right knee scope Cholecystectomy Benign stomach tumor removed Spinal cord stimulator (Claribel Steiner) Coded Allergies: No Known Allergies (Unverified , 12/12/16) Family History Mom and Dad: Heart disease, after CABG Social History Tobacco use: Quit 50 years ago Alcohol use: rarely Illicit drug use: Denies (Claribel Steiner) Review of Systems Constitutional: COMPLAINS OF: Night Sweats Eyes: DENIES: Blurred vision Ears, nose, mouth, throat: DENIES: Hearing loss Respiratory: DENIES: Cough Cardiovascular: DENIES: Chest pain Gastrointestinal: COMPLAINS OF: Black stools, Diarrhea, DENIES: Abdominal pain , Bloody stools, Constipation, Nausea, Vomiting, Hematemesis Genitourinary: DENIES: Hematuria Integumentary: DENIES: Jaundice Neurologic: DENIES: Abnormal gait Psychiatric: DENIES: Confusion (Claribel Steiner) GI Exam Vitals I&O Vital Signs Date Time Temp Pulse Resp B/P Pulse Ox O2 Delivery O2 Flow Rate FiO2 12/14/16 16:05 98.6 64 18 144/68 92 12/14/16 12:00 98.0 56 18 143/67 96 12/14/16 11:53 56 12/14/16 07:32 50 12/14/16 07:22 97.9 50 18 131/59 99 12/14/16 04:00 48 12/14/16 03:30 97.7 56 18 119/55 97 12/14/16 00:00 50 12/13/16 23:09 98.2 56 18 108/65 96 12/13/16 20:00 78 12/13/16 18:58 97.9 81 17 115/74 98 I/O 12/13/16 12/13/16 12/13/16 12/14/16 12/14/16 12/14/16 07:00 15:00 23:00 07:00 15:00 23:00 Intake Total 560 ml Balance 560 ml Intake IV Total 560 ml Imaging Last Impressions Carotid Artery Ultrasound 12/13/16 0000 Signed Impressions: Service Date/Time: Tuesday, December 13, 2016 08:13 - CONCLUSION: 1. Suspect mild to moderate stenosis of the left common carotid artery near the origin. 2. No hemodynamically significant internal carotid artery stenosis. 3. Antegrade vertebral artery flow bilaterally. Jose Alberto Hay MD Abdomen/Pelvis CT 12/12/162212 Signed Impressions: Service Date/Time: Monday, December 12, 2016 23:36 - CONCLUSION: 1. Nonspecific bowel gas pattern which may represent an ileus or gastroenteritis. Early obstruction is felt to be less likely. 2. Moderate hepatic steatosis. 3. Status post cholecystectomy. 4. Small low-attenuation lesion in the spleen which is nonspecific but appears benign. 5. Several small sclerotic foci which are nonspecific but likely represent small bone islands. Johann Bennett MD Chest X-Ray 12/12/162152 Signed Impressions: Service Date/Time: Monday, December 12, 2016 21:49 - CONCLUSION: The lungs are clear. Jamaal Rodriguez MD Laboratory Test 12/14/16 12/14/16 07:05 10:22 Sodium Level 145 MEQ/L Potassium Level 3.8 MEQ/L Chloride Level 109 MEQ/L Carbon Dioxide Level 27.6 MEQ/L Anion Gap 8 MEQ/L Blood Urea Nitrogen 12 MG/DL Creatinine 0.85 MG/DL Estimat Glomerular Filtration 89 ML/MIN Rate Random Glucose 99 MG/DL Calcium Level 8.8 MG/DL White Blood Count 4.0 TH/MM3 Red Blood Count 4.93 MIL/MM3 Hemoglobin 13.7 GM/DL Hematocrit 40.5 % Mean Corpuscular Volume 82.2 FL Mean Corpuscular Hemoglobin 27.8 PG Mean Corpuscular Hemoglobin 33.8 % Concent Red Cell Distribution Width 14.4 % Platelet Count 161 TH/MM3 Mean Platelet Volume 8.6 FL Neutrophils (%) (Auto) 58.8 % Lymphocytes (%) (Auto) 33.2 % Monocytes (%) (Auto) 5.0 % Eosinophils (%) (Auto) 2.2 % Basophils (%) (Auto) 0.8 % Neutrophils # (Auto) 2.3 TH/MM3 Lymphocytes # (Auto) 1.3 TH/MM3 Monocytes # (Auto) 0.2 TH/MM3 Eosinophils # (Auto) 0.1 TH/MM3 Basophils # (Auto) 0.0 TH/MM3 CBC Comment DIFF FINAL Differential Comment Date/Time Procedure Status Source Growth 12/14/16 09:46 Stool Occult Blood (PAT) - Final Complete Stool Stool HEMOCCULT POSITIVE Physical Examination HEENT: PERRL; normocephalic; atraumatic; no jaundice. CHEST: Chest is clear to auscultation and percussion. CARDIAC: Regular rate and rhythm with no murmur gallop or rubs. ABDOMEN: Soft, nondistended, mild RUQ TTP; no hepatosplenomegaly; bowel sounds are present in all four quadrants. EXTREMITIES: No clubbing, cyanosis, or edema. SKIN: Normal; no rash; no jaundice. SUPERVISOR SLATE SPLITTING: No focal deficits; alert and oriented times three. (Claribel Steiner) Assessment and Plan Plan ASSESSMENT - black tarry stool, heme pos stool - pt has been treated in ER for ileus and was improving, for 2d has had black tarry stools. Hgb did drop from 16 to 13 but still WNL previous hx UGIB in 1999. EGD/colonoscopy 5months ago in [place] and normal per pt PLAN - EGD in am - obtain consents - NPO after midnight - monitor HH - further recommendations to follow This pt seen by myself and Dr Greenwood and this note is written on her behalf ( Claribel Steiner) Physician Comments seen, examined agree with above obtain records of recent egd/colonoscopy (Gely Greenwood MD) Claribel Steiner Dec 14, 2016 16:52 Gely Greenwood MD Dec 14, 2016 18:54
[2016-12-15] VITALS (8 sets, daily range): BP systolic 135–190; BP diastolic 65–84; PULSE 44–64; RESP 18; TEMP 97.9–98.7; O2SAT 96–99
[2016-12-15] MEDS: MORPHINE SULFATE 4 MG/ML INJ IV PUSH PRN ×2 (04:42→10:45)
[2016-12-15 08:05] LABS: AUTOMATED NEUTROPHIL # 2.1 TH/MM3 (1.8-7.7); BASOPHIL % 0.8 % (0.0-2.0); EOSINOPHIL # 0.1 TH/MM3 (0-0.4); EOSINOPHIL % 2.9 % (0.0-4.0); HEMATOCRIT 36.4 % (39.0-51.0); HEMO FLAGS DIFF FINAL; LYMPH % 43.4 % (9.0-44.0); LYMPHOCYTE # 1.9 TH/MM3 (1.0-4.8); MEAN CELL VOLUME 81.4 FL (80.0-100.0); MEAN CORPUSCULAR HEMOGLOBIN 28.1 PG (27.0-34.0); MEAN CORPUSCULAR HGB CONC 34.5 % (32.0-36.0); MONO % 6.5 % (0.0-8.0); NEUT % 46.4 % (16.0-70.0); PLATELET COUNT 126 TH/MM3 (150-450); RED BLOOD COUNT 4.48 MIL/MM3 (4.50-5.90); RED CELL DISTRIBUTION WIDTH 14.6 % (11.6-17.2); WHITE BLOOD COUNT 4.4 TH/MM3 (4.0-11.0)
[2016-12-15 08:33] LABS: BICARBONATE 22.3 MEQ/L (21.0-32.0); POTASSIUM 3.6 MEQ/L (3.5-5.1)
[2016-12-15] MEDS ORDERED: PROPOFOL 200 MG/20 ML AMP IV ONE (09:05)
--- NOTE | 2016-12-15 09:22 | GIPROC ---
[facility] [address] [facility]. [facility], [address] EGD PROCEDURE REPORT EXAM DATE: 12/15/2016 PATIENT NAME: Desean Patton MR #: [id number] BIRTHDATE: 1945 ATTENDING: Gely Greenwood MD ORDER #: [id number] TECHNICAL LABORATORY ASST: Vicente Cohen and Maria Alejandra Flores STATUS: inpatient INDICATIONS: The patient is a 71 yr old male here for an EGD due to melena abdominal pain PROCEDURE PERFORMED: EGD w/ biopsy MEDICATIONS: None and Per Anesthesia. TOPICAL ANESTHETIC: none CONSENT: The patient understands the risks and benefits of the procedure and understands that these risks include, but are not limited to: sedation, allergic reaction, infection, perforation and/or bleeding. Alternative means of evaluation and treatment include, among others: physical exam, x-rays, and/or surgical intervention. The patient elects to proceed with this endoscopic procedure. medical equipment was checked for proper function. Hand hygiene and appropriate measures for infection prevention was taken. After the risks, benefits and alternatives of the procedure were thoroughly explained, Informed consent was verified, confirmed and timeout was successfully executed by the treatment team. The patient was anesthetized with topical anesthesia and the Pentax [id number] endoscope was introduced through the mouth and advanced to the second portion of the duodenum. Retroflexed views revealed a hiatal hernia The gastroscope was then slowly withdrawn and removed. Gastritis antrum-biopsy duodenal bulb ulcer 1 cm, clean base-biopsy Schatzki's ring. ADVERSE EVENTS: There were no complications. IMPRESSIONS: 1. Gastritis antrum-biopsy duodenal bulb ulcer 1 cm, clean base-biopsy Schatzki's ring 2. Retroflexed views revealed a hiatal hernia RECOMMENDATIONS: 1. Await biopsy results. Biopsy results will not be ready for 7-10 days. If you don't hear from us in two weeks, call our office for biopsy results. 2. Anti-reflux regimen 3. Ppi-bid carafate 1 gm po bid PATIENT CONDITION: stable DISPOSITION: Inpatient REPEAT EXAM: EGD pending biopsy results Gely Greenwood MD eSigned: Gely Greenwood MD 12/15/2016 9:22 AM cc: PATIENT NAME: Desean Patton MR#: [id number]
[2016-12-15] MEDS: PANTOPRAZOLE SOD 40 MG DELAYED RELEASE TAB PO SCH (10:09)
[2016-12-15] MEDS: DOCUSATE SODIUM 50 MG/SENNA 8.6 MG TAB PO SCH (10:09)
[2016-12-15] MEDS: GABAPENTIN 100 MG CAP PO SCH ×2 (10:10→13:08)
[2016-12-15] MEDS: SODIUM CHLOR 0.9% 1000 ML INJ 1,000 ML IV SCH (10:10)
[2016-12-15] MEDS: SODIUM CHLORIDE 0.9% FLUSH 10 ML FLUSH IV FLUSH SCH (10:10)
[2016-12-15] MEDS ORDERED: PILL SPLITTER OTHER PRN (10:15)
[2016-12-15] MEDS ORDERED: LISINOPRIL 10 MG TAB PO SCH (11:00)
--- NOTE | 2016-12-15 11:01 | HHI.PR ---
Subjective Remarks Follow-up for ileus and GI bleed. The patient is seen with at bedside after EGD today. Denies any further nausea or vomiting. He is looking for to eating today. He denies any further abdominal pain. He had 2 bowel movements 2 days ago. He takes aspirin or history of coronary artery disease. He takes scheduled methadone for chronic back pain, follows with pain management in [place]. He states that he rarely uses as needed oxycodone. Objective Vitals Vital Signs Date Time Temp Pulse Resp B/P Pulse Ox O2 Delivery O2 Flow Rate FiO2 12/15/16 09:30 49 18 124/61 98 12/15/16 09:20 45 18 117/61 98 12/15/16 09:10 98.5 49 18 150/58 99 12/15/16 08:27 98.0 54 18 190/84 99 12/15/16 07:30 98.0 50 18 154/67 96 12/15/16 05:30 98.7 64 18 135/65 97 12/15/16 04:01 48 12/15/16 00:15 98.4 62 18 136/75 96 12/15/16 00:00 54 12/14/16 21:04 97.9 68 18 160/72 98 12/14/16 20:00 72 12/14/16 16:39 97.5 65 18 120/76 95 12/14/16 16:05 98.6 64 18 144/68 92 12/14/16 12:00 98.0 56 18 143/67 96 12/14/16 11:53 56 I/O 12/14/16 12/14/16 12/14/16 12/15/16 12/15/16 12/15/16 07:00 15:00 23:00 07:00 15:00 23:00 Intake Total 300 ml Balance 300 ml Other 300 ml Result Diagram: 12/15/16 0600 12/15/16 0600 Imaging Last Impressions Carotid Artery Ultrasound 12/13/16 0000 Signed Impressions: Service Date/Time: Tuesday, December 13, 2016 08:13 - CONCLUSION: 1. Suspect mild to moderate stenosis of the left common carotid artery near the origin. 2. No hemodynamically significant internal carotid artery stenosis. 3. Antegrade vertebral artery flow bilaterally. Jose Alberto Hay MD Abdomen/Pelvis CT 12/12/162212 Signed Impressions: Service Date/Time: Monday, December 12, 2016 23:36 - CONCLUSION: 1. Nonspecific bowel gas pattern which may represent an ileus or gastroenteritis. Early obstruction is felt to be less likely. 2. Moderate hepatic steatosis. 3. Status post cholecystectomy. 4. Small low-attenuation lesion in the spleen which is nonspecific but appears benign. 5. Several small sclerotic foci which are nonspecific but likely represent small bone islands. Johann Bennett MD Chest X-Ray 12/12/162152 Signed Impressions: Service Date/Time: Monday, December 12, 2016 21:49 - CONCLUSION: The lungs are clear. Jamaal Rodriguez MD Objective Remarks GENERAL: Well-developed well-nourished. In no acute distress. SKIN: Warm and dry. No lesions noted. HEENT: Normocephalic. Pupils equal and round. Mucous membranes pink and moist. CARDIOVASCULAR: Regular rate and rhythm. No murmur appreciated. RESPIRATORY: No accessory muscle use. Clear to auscultation. Breath sounds equal bilaterally. GASTROINTESTINAL: Abdomen soft, non-tender, nondistended. Bowel sounds x4. MUSCULOSKELETAL: No obvious deformities. No clubbing or cyanosis. No edema. NEUROLOGICAL: Awake and alert. No focal neurological deficits. Moves upper and lower extremities spontaneously. Normal speech. PSYCHIATRIC: Appropriate mood and affect; insight and judgment normal. A/P Problem List: (1) Ileus ICD Code: K56.7 Status: Acute (2) Hypokalemia ICD Code: E87.6 Status: Resolved (3) HTN (hypertension) ICD Code: I10 Status: Chronic (4) Chronic pain ICD Code: G89.29 Status: Chronic Assessment and Plan 71 y/o male with a history of HTN, DM, dyslipidemia, chronic pain on narcotics presented to the ED with a 6day history of nausea, vomiting and constipation. Ileus: patient with chronic narcotic use at home, no BM x5 days.Abdominal CT showed nonspecific bowel gas pattern which may represent ileus or gastroenteritis. -Continue supportive treatment with IVF hydration, antiemetics prn -Continue on Dorota-Colace bid -Diet advanced as tolerated -Symptoms improved GIB: She was found to have Hemoccult positive dark stools during admission. Hemoglobin 12.6. GI consulted, performed EGD which showed gastritis, hiatal hernia, clean-based duodenal bulb ulcer, Schatzki's ring. -Discuss with gastroenterology, okay for aspirin, continue PPI twice a day, start Carafate, cleared for DC and outpatient follow-up -Diet as tolerated Chest pain, and dizziness for the past 5 weeks: r/o ACS. Patient with hx of CAD s/p 1 stent placement 8-10years ago in [place]. No current chest pains. Suspect GI related as symptoms occurred mostly after nausea/vomiting. -Serial troponins negative x3, and EKG without acute ischemic changes -Carotid US with mild to moderate stenosis left common carotid; no hemodynamically significant stenosis of internal carotid arteries -Monitor on telemetry -no further chest pain, resolved Chronic pain, patient with spinal cord stimulator. -On Methadone 10mg tab po q6h and oxycodone 10mg q8h prn, held for now with ileus. -Patient was given IV morphine 2 mg as needed here for pain control -Continue oxycodone on an as needed at home, and recommend trial of holding methadone with ileus and following up with spray i painter. HTN, chronic -Decreased patient's metoprolol with borderline bradycardia. Continue home lisinopril -Monitor BP, adjust antihypertensives as needed DVT prophylaxis: Lovenox discontinued with bleeding. GI prophylaxis: Protonix Discharge Planning Discharge patient to home Condition on discharge: Improved Heart healthy Diet as tolerated Regular activity Rx written: Protonix, Carafate, metoprolol, lisinopril, Dorota-Colace Follow-up with primary care physician, pain management, and gastroenterology Problem Qualifiers (1) Chronic pain: Qualified Code: G89.4 - Chronic pain syndrome Bob Wynne Dec 15, 2016 11:01 Bob Wynne Dec 15, 2016 11:01
[2016-12-15] MEDS ORDERED: PANT40TA3 PO (11:03)
[2016-12-15] MEDS ORDERED: LISI-515 PO (11:03)
[2016-12-15] MEDS ORDERED: METO25TA3 PO (11:03)
[2016-12-15] MEDS ORDERED: CARA1TAB6 PO (11:03)
[2016-12-15 11:21] LABS: HEMATOCRIT 37.1 % (39.0-51.0); REVIEW FLAG FINAL
[2016-12-15] MEDS ORDERED: SENN1TAB PO (11:40)
--- NOTE | 2016-12-15 12:57 | HHI.DS ---
Discharge Summary Admission Date Dec 15, 2016 at 10:57 Discharge Date: Dec 15, 2016 Admitting Diagnosis Intractable vomiting (1) Ileus ICD Code: K56.7 Diagnosis: Principal (2) Hypokalemia ICD Code: E87.6 Diagnosis: Secondary (3) HTN (hypertension) ICD Code: I10 Diagnosis: Secondary (4) Chronic pain ICD Code: G89.29 Diagnosis: Secondary (5) Gastritis ICD Code: K29.70 Diagnosis: Secondary (6) Duodenal ulcer ICD Code: K26.9 Diagnosis: Secondary Procedures EGD 12/15/16 Brief History - From Admission Written by APURVA Newberry acting as scribe for Dr. Mckeon] on 12/13/16 at 01: 11. 71 y/o male with a history of HTN, DM, dyslipidemia, chronic pain on narcotics presented to the ED with complaints of nausea, vomiting and constipation. Patient states Monday night he began to have nausea, vomiting, abdominal pain , and constipation. He was seen at [facility], and was discharged with [facility]. He states at home he had a fever, t max 101 by an ear thermometer. H has been unable to keep any liquids or food down since Monday. Denies cough, diarrhea , or dysuria. He states he has been experiencing dizziness, chest pain, sob and sweating episodes x 3 while doing yard work for the past 5 weeks. He has not gone to see PCP, he has just moved from [place] and has not gotten established. CBC/BMP: 12/15/16 1108 12/15/16 0600 Significant Findings Laboratory Tests Test 12/12/16 12/12/16 12/13/16 12/13/16 22:00 22:10 06:34 14:38 Monocytes (%) (Auto) 8.6 % (0.0-8.0) Prothrombin Time 12.2 SEC (9.8-11.6) Potassium Level 3.3 MEQ/L (3.5-5.1) Carbon Dioxide Level 19.5 MEQ/L (21.0-32.0) Estimat Glomerular Filtration 76 ML/MIN (>89) Rate Random Glucose 131 MG/DL (74-106) Total Bilirubin 1.1 MG/DL (0.2-1.0) Troponin I LESS THAN 0.02 LESS THAN 0.02 LESS THAN 0.02 NG/ML NG/ML NG/ML (0.02-0.05) (0.02-0.05) (0.02-0.05) Urine Turbidity HAZY (CLEAR) Urine Protein 30 mg/dL (NEG-TRACE) Urine Ketones 40 mg/dL (NEG) Urine Urobilinogen 4.0 MG/DL (LESS THAN 2.0) Urine Mucus MANY /lpf (OCC) Test 12/14/16 12/15/16 12/15/16 07:05 06:00 11:08 Chloride Level 109 MEQ/L 111 MEQ/L (98-107) (98-107) Red Blood Count 4.48 MIL/MM3 (4.50-5.90) Hemoglobin 12.6 GM/DL 12.8 GM/DL (13.0-17.0) (13.0-17.0) Hematocrit 36.4 % 37.1 % (39.0-51.0) (39.0-51.0) Platelet Count 126 TH/MM3 (150-450) Calcium Level 8.2 MG/DL (8.5-10.1) Imaging Last Impressions Carotid Artery Ultrasound 12/13/16 0000 Signed Impressions: Service Date/Time: Tuesday, December 13, 2016 08:13 - CONCLUSION: 1. Suspect mild to moderate stenosis of the left common carotid artery near the origin. 2. No hemodynamically significant internal carotid artery stenosis. 3. Antegrade vertebral artery flow bilaterally. Jose Alberto Hay MD Abdomen/Pelvis CT 12/12/165 Signed Impressions: Service Date/Time: Monday, December 12, 2016 23:36 - CONCLUSION: 1. Nonspecific bowel gas pattern which may represent an ileus or gastroenteritis. Early obstruction is felt to be less likely. 2. Moderate hepatic steatosis. 3. Status post cholecystectomy. 4. Small low-attenuation lesion in the spleen which is nonspecific but appears benign. 5. Several small sclerotic foci which are nonspecific but likely represent small bone islands. Johann Bennett MD Chest X-Ray 12/12/162152 Signed Impressions: Service Date/Time: Monday, December 12, 2016 21:49 - CONCLUSION: The lungs are clear. Jamaal Rodriguez MD PE at Discharge GENERAL: Well-developed well-nourished. In no acute distress. SKIN: Warm and dry. No lesions noted. HEENT: Normocephalic. Pupils equal and round. Mucous membranes pink and moist. CARDIOVASCULAR: Regular rate and rhythm. No murmur appreciated. RESPIRATORY: No accessory muscle use. Clear to auscultation. Breath sounds equal bilaterally. GASTROINTESTINAL: Abdomen soft, non-tender, nondistended. Bowel sounds x4. MUSCULOSKELETAL: No obvious deformities. No clubbing or cyanosis. No edema. NEUROLOGICAL: Awake and alert. No focal neurological deficits. Moves upper and lower extremities spontaneously. Normal speech. PSYCHIATRIC: Appropriate mood and affect; insight and judgment normal. Hospital Course 71 y/o male with a history of HTN, DM, dyslipidemia, chronic pain on narcotics presented to the ED with a 6day history of nausea, vomiting and constipation. Ileus: patient with chronic narcotic use at home, no BM x5 days.Abdominal CT showed nonspecific bowel gas pattern which may represent ileus or gastroenteritis. -Continue on Dorota-Colace bid -Diet advanced as tolerated -Symptoms improved GIB: She was found to have Hemoccult positive dark stools during admission. Hemoglobin 12.6. GI consulted, performed EGD which showed gastritis, hiatal hernia, clean-based duodenal bulb ulcer, Schatzki's ring. -Discussed with gastroenterology, okay for aspirin, continue PPI twice a day , started Carafate, cleared for DC and outpatient follow-up Chest pain, and dizziness for the past 5 weeks: History of CAD. Suspect GI related. -Serial troponins negative x3, and EKG without acute ischemic changes; ACS ruled out per protocol -Carotid US with mild to moderate stenosis left common carotid; no hemodynamically significant stenosis of internal carotid arteries -no further chest pain, resolved Chronic pain, patient with spinal cord stimulator. -On Methadone 10mg tab po q6h and oxycodone 10mg q8h prn, held with ileus. -Patient was given IV morphine 2 mg as needed here for pain control -Continue oxycodone on an as needed at home, and recommend trial of holding methadone with ileus and following up with house painter helper. HTN, chronic -Decreased patient's metoprolol with borderline bradycardia. Continue home lisinopril at decreased dose due to soft BP. -Outpatient PCP follow-up Pt Condition on Discharge: Stable Discharge Disposition: Discharge Home Discharge Time: > 30 minutes Discharge Instructions DIET: Follow Instructions for: Heart Healthy Diet Activities you can perform: Regular-No Restrictions Follow up Referrals: Gastroenterology - 2 Weeks with Gely Greenwood MD PCP Follow-up - 1 Week New Medications: Lisinopril (Lisinopril) 20 Mg Tab 20 MG PO DAILY #30 Ref 0 TAB Metoprolol Tartrate (Metoprolol Tartrate) 25 Mg Tab 12.5 MG PO BID Blood Pressure Management #30 TAB Pantoprazole (Pantoprazole) 40 Mg Tab 40 MG PO Q12HR Reflux #60 TAB Sennosides-Docusate Sodium (Senna Plus 8.6-50 mg) 1 Tab Tab 1 TAB PO BID Constipation #60 TAB Sucralfate (Carafate) 1 Gm Tab 1 GM PO BIDAC Reflux #60 TAB Continued Medications: Aspirin (Aspirin) 81 Mg Chew 81 MG CHEW HS Ref 0 TAB Dextromethorphan HBr-Quinidine (Nuedexta 20-10 mg) 1 Cap Cap 1 CAP PO Q12HR Pseudobulbar Affect #7 Ref 0 CAP Gabapentin (Neurontin) 100 Mg Cap 100 MG PO QID #90 Ref 0 CAP Metformin (Metformin) 1,000 Mg Tab 1000 MG PO BIDPC With meals Blood Sugar Management #60 Ref 0 TAB Oxycodone (Oxycodone) 10 Mg Tab 10 MG PO Q8H PRN PAIN Ref 0 TAB Sitagliptin (Januvia) 100 Mg Tab 100 MG PO DAILY Blood Sugar Management #30 Ref 0 TAB Discontinued Medications: Lisinopril (Lisinopril) 40 Mg Tab 40 MG PO DAILY Blood Pressure Management #30 Ref 0 TAB Methadone (Methadone) 10 Mg Tab 10 MG PO Q6HR Ref 0 TAB Metoprolol Tartrate (Metoprolol Tartrate) 25 Mg Tab 25 MG PO BID #60 Ref 0 TAB Omeprazole (Omeprazole) 20 Mg Tab 20 MG PO BID #30 Ref 0 TAB Bob Wynne Dec 15, 2016 12:57
[2016-12-15] MEDS ORDERED: SUCRALFATE 1 GM TAB PO SCH (16:00)
[2016-12-15] MEDS ORDERED: PANTOPRAZOLE SOD 40 MG DELAYED RELEASE TAB PO SCH (21:00)
[2016-12-15] MEDS ORDERED: METOPROLOL TARTRATE 25 MG TAB PO SCH (21:00)
== END 2016-12-15 14:32 | disposition home or self-care (01) | DRG 389 ==
LOC: NEPC 19:35 → NEDA 12-13 00:12 → NEPFCDU 12-13 01:43 → OBSVTOIN 12-15 10:57
PROVIDERS: ADMIT Hospitalist; ATTEND Hospitalist
PROC: 0DB78ZX Excision of Stomach, Pylorus, Via Natural or Artificial Opening Endoscopic, Diagnostic (ICD-10-PCS; 2016-12-15)
PROC: 0DB98ZX Excision of Duodenum, Via Natural or Artificial Opening Endoscopic, Diagnostic (ICD-10-PCS; principal; 2016-12-15 08:25)
DX: K56.7 Ileus, unspecified (principal); K92.1 Melena; K26.9 Duodenal ulcer, unspecified as acute or chronic, without hemorrhage or perforation; R00.1 Bradycardia, unspecified; E11.9 Type 2 diabetes mellitus without complications; K22.2 Esophageal obstruction; E86.0 Dehydration; I10 Essential (primary) hypertension; R12 Heartburn; E78.5 Hyperlipidemia, unspecified; K59.00 Constipation, unspecified; E87.6 Hypokalemia; G89.29 Other chronic pain; K44.9 Diaphragmatic hernia without obstruction or gangrene; M54.9 Dorsalgia, unspecified; K29.70 Gastritis, unspecified, without bleeding; I25.10 Atherosclerotic heart disease of native coronary artery without angina pectoris; R07.9 Chest pain, unspecified; I25.2 Old myocardial infarction; Z95.5 Presence of coronary angioplasty implant and graft; Z87.891 Personal history of nicotine dependence; Z79.82 Long term (current) use of aspirin; Z79.891 Long term (current) use of opiate analgesic
CPT/HCPCS: 71010; 74177; 80048; 80053; 81001; 82272; 83690; 83735; 84484; 85014; 85018; 85025; 85610; 85730; 88305; 88312; 93005; 93880; 96361; 96365; 96375; 96376; C9113; G0378; J1650; J2270; J2405; J3480; J7030; J7040; Q9967